=== PATIENT | female | born 1970 | race Caucasian/White ===

== ENCOUNTER 2018-09-26 01:51 | Emergency (ER) | payer MEDICAID, MEDICARE ==
[2018-09-26] MEDS ORDERED: Ondansetron PF 4 MG/2 ML Vial ONE (02:24)
[2018-09-26 02:47] LABS: ALT (SGPT) 28 U/L (8-55); AST (SGOT) 31 U/L (5-34); Albumin 3.9 g/dL (3.5-5.0); Alkaline Phosphatase 191 U/L (40-150); Anion Gap 19 mmol/L (10-20); BUN (Urea Nitrogen) 9 mg/dL (7.0-18.7); Bilirubin, Total 0.2 mg/dL (0.2-1.2); Calc. Creatinine Clearance 0 mL/min (70-130); Calcium 8.8 mg/dL (7.8-10.44); Carbon Dioxide 15 mmol/L (22-29); Chloride 113 mmol/L (98-107); Estimated GFR-MDRD 80; Globulin 3.2 g/dL (2.4-3.5); Glucose 113 mg/dL (70-105); Lipase 13 U/L (8-78); Potassium 4.3 mmol/L (3.5-5.1); Protein, Total 7.1 g/dL (6.0-8.3); Sodium 143 mmol/L (136-145)
[2018-09-26 02:59] LABS: BHCG - Serum Negative (NEGATIVE); Pregs Control Background? CLEAR/WHITE (CLR/WHITE); Pregs Control Bar Appear? YES (CONTROL BAR)
[2018-09-26 03:12] LABS: Acetaminophen Less than 6.0 mcg/mL (10.0-30.0); Alcohol 145 mg/dL (Less than 10); Salicylate Less than 8.0 mg/dL (15.0-30.0)
[2018-09-26 03:19] LABS: #Lymphocytes 1.2 thou/uL (1.20-3.40); #Monocytes 0.4 thou/uL (0.11-0.59); #Neutrophils 6.3 thou/uL (1.40-6.50); %Basophils 0.5 % (0.0-1.0); %Eosinophils 0.3 % (0.0-10.0); %Monocytes 4.7 % (0.0-10.0); %Neutrophils 79.4 % (42.0-75.0); Hemoglobin 14.5 g/dL (12.0-16.0); MDiff Complete? YES; Macrocytosis SLIGHT = 6-15 cells (100X) (0-5/hpf); Mean Corpuscular HGB CONC 35.3 g/dL (32.0-36.0); Mean Corpuscular Hemoglobin 37.8 pg (27.0-31.0); Platelet Count 245 thou/uL (130-400); RBC Distribution Width 11.7 % (11.5-14.5); Red Blood Cell (RBC) Count 3.84 mill/uL (4.20-5.40)
[2018-09-26] MEDS ORDERED: Lorazepam 2 MG/ML VIAL ONE (03:43)
[2018-09-26 05:41] LABS: Bilirubin Negative (Negative); Blood, Urine Large (Negative); Clarity CLEAR (Clear); Glucose, Urine (Dipstick) Negative (Negative); Leukocyte Negative (Negative); Nitrite Negative (Negative); Protein, Urine (Dipstick) Negative (Neg-Trace); Urobilinogen 0.2 mg/dL (0.2-1.0)
[2018-09-26 05:44] LABS: Bacteria/HPF None Seen HPF (None Seen); Hyaline Casts/LPF 0-3 HYALINE CAST LPF (0-3 Hyaline); Pathc Cast-AUWi Flag 0.27 (0-2.49); RBC/HPF GREATER THAN 50-TNTC HPF (0-3); Squamous Epithelial None Seen HPF (0-3); WBC/HPF 0-3 HPF (0-3)
[2018-09-26 05:46] LABS: Pregnancy Test - Urine (BHCG) Negative (Negative)
[2018-09-26 05:47] LABS: Pregu Control Background? CLEAR/WHITE (CLR/WHITE); Pregu Control Bar Appear? YES (CONTROL BAR); Specific Gravity 1.045 (1.002-1.036); Specific Gravity, Urine 1.045 (1.002-1.036)
--- NOTE | 2018-09-26 08:50 | CT ---
CT OF ABDOMEN AND PELVIS WITH CONTRAST FINAL REPORT: FINDINGS/IMPRESSION: Final report is in agreement with the above provided preliminary interpretation. Findings most consistent with recently passed left ureteral calculus, with mild residual urothelial h yperemia, thickening, and slight distention of the left urinary collection system. Nonobstructive, punctate right nephrolithiasis.
[2018-09-26] MEDS ORDERED: ISOVUE-370 76%-LOCM 1 ML ONE (11:20)
== END 2018-09-26 06:10 | disposition home or self-care (01) ==
LOC: ERS 01:51
DX: N21.0 Calculus in bladder (principal); N23 Unspecified renal colic
CPT/HCPCS: 36415; 36416; 74177; 80053; 80307; 81003; 81015; 81025; 83605; 83690; 84484; 84703; 85025; 86850; 86900; 86901; 87086; 93005; 96361; 96374; 96375; J2060; J2405; Q9966

== ENCOUNTER 2020-07-01 13:06 | Emergency (ER) | payer MEDICARE ==
[2020-07-01 14:26] LABS: Amphetamine Not Detected (NotDetected); Barbiturates Screen Not Detected (NotDetected); Benzodiazepine Screen Not Detected (NotDetected); Cocaine Metabolite Screen Not Detected (NotDetected); Medtox Control Line Valid? VALID (VALID); Medtox Reader # READER 4; Methadone Not Detected (NotDetected); Methamphetamine Not Detected (NotDetected); Opiate Screen Not Detected (NotDetected); Oxycodone Screen Not Detected (NotDetected); Phencyclidine (PCP) Not Detected (NotDetected); THC/Cannabinoid Screen Not Detected (NotDetected); Tricyclic Screen Not Detected (NotDetected)
[2020-07-01 14:34] LABS: #Eosinphils 0.1 thou/uL (0.0-0.7); #Lymphocytes 2.7 thou/uL (1.20-3.40); #Monocytes 0.4 thou/uL (0.11-0.59); #Neutrophils 3.4 thou/uL (1.40-6.50); %Basophils 0.7 % (0.0-1.0); %Eosinophils 1.2 % (0.0-10.0); %Lymphocytes 40.8 % (21.0-51.0); %Monocytes 5.8 % (0.0-10.0); %Neutrophils 51.4 % (42.0-75.0); Hemoglobin 13.9 g/dL (12.0-16.0); Mean Corpuscular HGB CONC 33.3 g/dL (32.0-36.0); Mean Corpuscular Hemoglobin 35.1 pg (27.0-31.0); Mean Platelet Volume 7.1 fL (7.4-10.4); Platelet Count 237 thou/uL (130-400); RBC Distribution Width 13.3 % (11.5-14.5); Red Blood Cell (RBC) Count 3.96 mill/uL (4.20-5.40); White Blood Cell (WBC) Count 6.6 thou/uL (4.8-10.8)
[2020-07-01 14:48] LABS: Acetaminophen Less than 6.0 mcg/mL (10.0-30.0); Alcohol 304 mg/dL (Less than 10); Salicylate Less than 8.0 mg/dL (15.0-30.0)
[2020-07-01 14:51] LABS: ALT (SGPT) 25 U/L (8-55); AST (SGOT) 27 U/L (5-34); Albumin 4.3 g/dL (3.5-5.0); Alkaline Phosphatase 180 U/L (40-110); Anion Gap 20 mmol/L (10-20); BUN (Urea Nitrogen) 11 mg/dL (7.0-18.7); Bilirubin, Total 0.3 mg/dL (0.2-1.2); CK (CPK) 124 U/L (29-168); Calc. Creatinine Clearance 0 mL/min (70-130); Calcium 8.5 mg/dL (7.8-10.44); Carbon Dioxide 22 mmol/L (22-29); Chloride 102 mmol/L (98-107); Globulin 3.4 g/dL (2.4-3.5); Glucose 93 mg/dL (70-105); Potassium 4.5 mmol/L (3.5-5.1); Protein, Total 7.7 g/dL (6.0-8.3); Sodium 139 mmol/L (136-145)
[2020-07-01 14:52] LABS: MDiff Complete? YES; Macrocytosis SLIGHT = 6-15 cells (100X) (0-5/hpf); Platelet Morphology Comment Appears Adequate
[2020-07-01] MEDS ORDERED: Nicotine 21 MG PATCH TOP SCH (17:00)
[2020-07-01] MEDS ORDERED: Acetaminophen 500 MG TAB ONE ×2 (19:49→19:51)
[2020-07-01] MEDS ORDERED: Ondansetron ODT 4 MG TAB ONE (20:52)
[2020-07-01] MEDS ORDERED: Lorazepam 2 MG/ML VIAL ONE (22:20)
[2020-07-01] MEDS ORDERED: Haloperidol Lactate 5 MG/ML VIAL IM SCH (22:30)
[2020-07-02] MEDS ORDERED: Acetaminophen 325 MG TAB ONE (08:23)
== END 2020-07-02 11:46 ==
LOC: ERS 13:06
DX: R45.851 Suicidal ideations (principal); F10.129 Alcohol abuse with intoxication, unspecified; Y90.0 Blood alcohol level of less than 20 mg/100 ml; F17.210 Nicotine dependence, cigarettes, uncomplicated; Z79.899 Other long term (current) drug therapy
CPT/HCPCS: 36415; 80053; 80306; 80307; 82550; 84443; 85025; 93005; 96372; J1630; J2060; Q0162

== ENCOUNTER 2022-01-21 22:05 | Emergency (ER) | payer MEDICARE | END 2022-01-21 23:41 | LOC: ERS 22:05 | DX: R55 Syncope and collapse (principal); F17.210 Nicotine dependence, cigarettes, uncomplicated | CPT/HCPCS: 93005 ==

== ENCOUNTER 2022-11-23 02:41 | Emergency (ER) | payer OTHER ==
[2022-11-23] MEDS ORDERED: Ondansetron PF 4 MG/2 ML Vial ONE (03:29)
[2022-11-23] MEDS ORDERED: Meclizine HCl 25 MG TAB ONE (03:29)
[2022-11-23] MEDS ORDERED: Acetaminophen 500 MG TAB ONE (03:29)
[2022-11-23 03:32] LABS: #Eosinphils 0.1 thou/uL (0.0-0.7); #Monocytes 0.4 thou/uL (0.11-0.59); #Neutrophils 1.4 thou/uL (1.40-6.50); %Basophils 1.1 % (0.0-1.0); %Eosinophils 1.6 % (0.0-10.0); %Lymphocytes 50.1 % (21.0-51.0); %Neutrophils 36.9 % (42.0-75.0); Hemoglobin 10.6 g/dL (12.0-16.0); Mean Corpuscular Hemoglobin 32.7 pg (27.0-31.0); Mean Corpuscular Volume 99.1 fl (78.0-98.0); Mean Platelet Volume 9.2 fL (7.4-10.4); Platelet Count 247 10x3/uL (130-400); RBC Distribution Width 16.9 % (11.5-14.5); Red Blood Cell (RBC) Count 3.24 mill/uL (4.20-5.40); White Blood Cell (WBC) Count 3.8 10x3/uL (4.8-10.8)
[2022-11-23 04:00] LABS: Acetaminophen Less than 10 mcg/mL (10.0-30.0); Alcohol 301.6 mg/dL (Less than 10); Lipase 37 U/L (8-78); Salicylate Less than 8.0 mg/dL (15.0-30.0)
[2022-11-23 04:01] LABS: ALT (SGPT) 15 U/L (8-55); AST (SGOT) 17 U/L (5-34); Albumin 3.6 g/dL (3.5-5.0); Alkaline Phosphatase 295 U/L (40-110); Anion Gap 17 mmol/L (10-20); BUN (Urea Nitrogen) 8 mg/dL (9.8-20.1); Bilirubin, Total 0.2 mg/dL (0.2-1.2); CK (CPK) 39 U/L (29-168); Calc. Creatinine Clearance 0 mL/min (70-130); Calcium 8.6 mg/dL (7.8-10.44); Carbon Dioxide 18 mmol/L (22-29); Chloride 109 mmol/L (98-107); Estimated GFR 108; Globulin 3.2 g/dL (2.4-3.5); Glucose 81 mg/dL (70-105); Potassium 3.9 mmol/L (3.5-5.1); Protein, Total 6.8 g/dL (6.0-8.3); Sodium 140 mmol/L (136-145)
== END 2022-11-23 06:52 | disposition home or self-care (01) ==
LOC: ERS 02:41
DX: F10.129 Alcohol abuse with intoxication, unspecified (principal); R07.9 Chest pain, unspecified; D72.819 Decreased white blood cell count, unspecified; I10 Essential (primary) hypertension; J44.9 Chronic obstructive pulmonary disease, unspecified; F17.210 Nicotine dependence, cigarettes, uncomplicated; Y90.8 Blood alcohol level of 240 mg/100 ml or more
CPT/HCPCS: 36415; 80053; 80307; 82140; 82550; 83690; 84484; 85025; 93005; 96365; 96375; J2405; J3411

== ENCOUNTER 2023-03-31 18:12 | Emergency (ER) | payer OTHER ==
[2023-03-31 21:56] LABS: Bacteria/HPF None Seen HPF (None Seen); Bilirubin Negative (Negative); Blood, Urine Negative (Negative); CAUTI Indications for Culture Alt mental st,lethar; Clarity Clear (Clear); Glucose, Urine (Dipstick) Normal (Negative); Ketone, Urine Negative (Negative); Leukocyte Negative Leu/uL (Negative); Nitrite Negative (Negative); Protein, Urine (Dipstick) Negative (Neg-Trace); RBC/HPF 0-3 HPF (0-3); Specific Gravity, Urine 1.012 (1.002-1.036); Squamous Epithelial 0-3 HPF (0-3); Urobilinogen Normal mg/dL (Less than 2); WBC/HPF 0-3 HPF (0-3)
[2023-03-31 22:00] LABS: Urine Culture Reflex No No
[2023-03-31 22:02] LABS: Amphetamine Not Detected (NotDetected); Barbiturates Screen Not Detected (NotDetected); Benzodiazepine Screen Not Detected (NotDetected); Cocaine Metabolite Screen Not Detected (NotDetected); Methadone Not Detected (NotDetected); Methamphetamine Not Detected (NotDetected); Opiate Screen Not Detected (NotDetected); Oxycodone Screen Not Detected (NotDetected); Phencyclidine (PCP) Not Detected (NotDetected); THC/Cannabinoid Screen Detected (NotDetected); Tricyclic Screen Not Detected (NotDetected)
[2023-03-31 22:46] LABS: Acetaminophen Less than 10 mcg/mL (10.0-30.0); Alcohol 271.7 mg/dL (Less than 10); Salicylate Less than 8.0 mg/dL (15.0-30.0)
[2023-04-01] MEDS ORDERED: Ondansetron PF 4 MG/2 ML Vial ONE ×3 (00:03→08:49)
[2023-04-01] MEDS ORDERED: diphenhydrAMINE 50 MG/ML VIAL ONE (00:03)
[2023-04-01] MEDS ORDERED: LORazepam 2 MG/ML SYR.(CARPUJECT) ONE ×2 (03:28→08:49)
== END 2023-04-01 19:58 | disposition home or self-care (01) ==
LOC: ERS 18:12 → EEVIPCON 18:12 → ERS 04-01 19:58
DX: F10.129 Alcohol abuse with intoxication, unspecified (principal); F43.20 Adjustment disorder, unspecified; F17.210 Nicotine dependence, cigarettes, uncomplicated; Y90.0 Blood alcohol level of less than 20 mg/100 ml
CPT/HCPCS: 80306; 80307 ×2; 81001; 84443; 96361; 96374; 96375; 96376; 99285; J2060; 36415; J1200; J2405

== ENCOUNTER 2023-04-03 12:28 | Emergency (ER) | payer MEDICARE, OTHER ==
[2023-04-03 12:50] LABS: Hematocrit 38.6 % (36.0-47.0); Manual Diff?? YES; Mean Corpuscular HGB CONC 33.7 g/dL (32.0-36.0); Mean Corpuscular Hemoglobin 34.4 pg (27.0-31.0); Mean Corpuscular Volume 102.1 fl (78.0-98.0); Mean Platelet Volume 9.6 fL (7.4-10.4); Platelet Count 154 10x3/uL (130-400); RBC Distribution Width 15.4 % (11.5-14.5); Red Blood Cell (RBC) Count 3.78 mill/uL (4.20-5.40); White Blood Cell (WBC) Count 4.8 10x3/uL (4.8-10.8)
[2023-04-03 12:53] LABS: Delete Auto Diff?? YES
[2023-04-03 13:15] LABS: ALT (SGPT) 52 U/L (8-55); AST (SGOT) 102 U/L (5-34); Albumin 3.8 g/dL (3.5-5.0); Alkaline Phosphatase 211 U/L (40-110); Anion Gap 18 mmol/L (10-20); BUN (Urea Nitrogen) 8 mg/dL (9.8-20.1); Bilirubin, Total 0.2 mg/dL (0.2-1.2); Calc. Creatinine Clearance 0 mL/min (70-130); Calcium 8.5 mg/dL (7.8-10.44); Carbon Dioxide 23 mmol/L (22-29); Chloride 105 mmol/L (98-107); Estimated GFR 104; Globulin 2.7 g/dL (2.4-3.5); Glucose 92 mg/dL (70-105); Potassium 4.2 mmol/L (3.5-5.1); Protein, Total 6.5 g/dL (6.0-8.3); Sodium 142 mmol/L (136-145)
[2023-04-03 13:16] LABS: Acetaminophen Less than 10 mcg/mL (10.0-30.0); Alcohol 389.3 mg/dL (Less than 10); Salicylate Less than 8.0 mg/dL (15.0-30.0)
[2023-04-03 13:19] LABS: Anisocytosis SLIGHT = 6-15 cells HPF (0-5); Band 5 % (5-11); CellaVision Operator ID LAB.MJL; Lymphocytes 62 % (21-51); Macrocytosis SLIGHT = 6-15 cells HPF (0-5); Monocytes 6 % (0-10); Neutrophil 21 % (42-75); Ovalocytes SLIGHT = 2-5 cells HPF (0-1); Platelet Adequacy Comment Platelets Normal; Polychromasia SLIGHT = 2-3 cells HPF (0-2); Reactive Lymphocytes 3 % (0-10); Total Cell Count 100
[2023-04-03 14:22] LABS: Bacteria/HPF None Seen HPF (None Seen); Bilirubin Negative (Negative); Blood, Urine Negative (Negative); CAUTI Indications for Culture Alt mental st,lethar; Clarity Clear (Clear); Glucose, Urine (Dipstick) Normal (Negative); Ketone, Urine Negative (Negative); Leukocyte Negative Leu/uL (Negative); Nitrite Negative (Negative); Protein, Urine (Dipstick) Negative (Neg-Trace); RBC/HPF 0-3 HPF (0-3); Specific Gravity, Urine 1.013 (1.002-1.036); Squamous Epithelial 0-3 HPF (0-3); Urobilinogen Normal mg/dL (Less than 2); WBC/HPF 0-3 HPF (0-3)
[2023-04-03 14:23] LABS: Urine Culture Reflex No No
[2023-04-03 14:27] LABS: Amphetamine Not Detected (NotDetected); Barbiturates Screen Not Detected (NotDetected); Benzodiazepine Screen Not Detected (NotDetected); Cocaine Metabolite Screen Not Detected (NotDetected); Methadone Not Detected (NotDetected); Methamphetamine Not Detected (NotDetected); Opiate Screen Not Detected (NotDetected); Oxycodone Screen Not Detected (NotDetected); Phencyclidine (PCP) Not Detected (NotDetected); THC/Cannabinoid Screen Detected (NotDetected); Tricyclic Screen Not Detected (NotDetected)
[2023-04-03] MEDS ORDERED: Ondansetron ODT 4 MG TAB ONE ×2 (14:56→23:00)
[2023-04-03] MEDS ORDERED: Lorazepam 1 MG TAB ONE (23:00)
[2023-04-03] MEDS ORDERED: chlordiazePOXIDE HCl 25 MG CAP ONE (23:05)
== END 2023-04-04 09:55 | disposition home or self-care (01) ==
LOC: ERS 12:28
DX: F10.239 Alcohol dependence with withdrawal, unspecified (principal); F17.210 Nicotine dependence, cigarettes, uncomplicated; Y90.8 Blood alcohol level of 240 mg/100 ml or more
CPT/HCPCS: 36415; 80053; 80306; 80307; 81001; 84443; 85025; 99284; Q0162

== ENCOUNTER 2023-04-14 11:47 | Emergency (ER) | payer OTHER | END 2023-04-14 13:55 | disposition home or self-care (01) | LOC: ERS 11:47 | DX: F10.129 Alcohol abuse with intoxication, unspecified (principal); I50.9 Heart failure, unspecified; J44.9 Chronic obstructive pulmonary disease, unspecified; D64.9 Anemia, unspecified; F17.210 Nicotine dependence, cigarettes, uncomplicated; Z79.899 Other long term (current) drug therapy | CPT/HCPCS: 99284 ==

== ENCOUNTER 2023-04-18 20:49 | Emergency (ER) | payer OTHER ==
[2023-04-18 21:45] LABS: Hematocrit 42.9 % (36.0-47.0); Hemoglobin 14.3 g/dL (12.0-16.0); Manual Diff?? YES; Mean Corpuscular HGB CONC 33.3 g/dL (32.0-36.0); Mean Corpuscular Hemoglobin 34.4 pg (27.0-31.0); Mean Corpuscular Volume 103.1 fl (78.0-98.0); Mean Platelet Volume 9.6 fL (7.4-10.4); RBC Distribution Width 16.7 % (11.5-14.5); Red Blood Cell (RBC) Count 4.16 mill/uL (4.20-5.40); White Blood Cell (WBC) Count 3.9 10x3/uL (4.8-10.8)
[2023-04-18 21:46] LABS: Delete Auto Diff?? YES; Platelet Count 78 10x3/uL (130-400)
[2023-04-18] MEDS ORDERED: LORazepam 2 MG/ML SYR.(CARPUJECT) ONE (21:51)
[2023-04-18 22:09] LABS: ALT (SGPT) 88 U/L (8-55); AST (SGOT) 197 U/L (5-34); Albumin 3.8 g/dL (3.5-5.0); Alkaline Phosphatase 319 U/L (40-110); Anion Gap 22 mmol/L (10-20); BUN (Urea Nitrogen) 6 mg/dL (9.8-20.1); Bilirubin, Total 0.4 mg/dL (0.2-1.2); CK (CPK) 62 U/L (29-168); Calc. Creatinine Clearance 0 mL/min (70-130); Calcium 8.1 mg/dL (7.8-10.44); Carbon Dioxide 18 mmol/L (22-29); Chloride 107 mmol/L (98-107); Estimated GFR 107; Globulin 3.2 g/dL (2.4-3.5); Glucose 79 mg/dL (70-105); Potassium 5.3 mmol/L (3.5-5.1); Sodium 142 mmol/L (136-145)
[2023-04-18 22:12] LABS: Acetaminophen Less than 10 mcg/mL (10.0-30.0); Alcohol 446.6 mg/dL (Less than 10); Lipase 21 U/L (8-78); Salicylate Less than 8.0 mg/dL (15.0-30.0)
[2023-04-18 22:13] LABS: Troponin I Less than 0.010 ng/mL (< 0.028)
[2023-04-18 22:32] LABS: Band 4 % (5-11); CellaVision Operator ID LAB.CLH1; Eosinophils 2 % (0-10); Large Platelets 5.2 % (0-5); Lymphocytes 61 % (21-51); Macrocytosis SLIGHT = 6-15 cells HPF (0-5); Monocytes 5 % (0-10); Neutrophil 25 % (42-75); Platelet Adequacy Comment Platelets Decreased; Total Cell Count 115
[2023-04-19] MEDS ORDERED: Ondansetron PF 4 MG/2 ML Vial ONE (02:48)
[2023-04-19] MEDS ORDERED: Promethazine HCl 25 MG in Sodium Chloride 0.9% 50 ML IVPB SCH (06:00)
== END 2023-04-19 07:18 ==
LOC: ERS 20:49
DX: G89.29 Other chronic pain (principal); M54.50 Low back pain, unspecified; F10.129 Alcohol abuse with intoxication, unspecified; I50.9 Heart failure, unspecified; J44.9 Chronic obstructive pulmonary disease, unspecified; Z87.891 Personal history of nicotine dependence
CPT/HCPCS: 36415; 70450; 72131; 80053; 80307; 82550; 83690; 84484; 85025; 93005; J2060; J2405; J2550; J3411

== ENCOUNTER 2023-04-19 12:21 | Emergency (ER) | payer OTHER ==
[2023-04-19] MEDS ORDERED: Acetaminophen 500 MG TAB ONE (13:54)
[2023-04-19 16:46] LABS: Bilirubin Negative (Negative); Blood, Urine Negative (Negative); Clarity Clear (Clear); Glucose, Urine (Dipstick) Normal (Negative); Ketone, Urine Negative (Negative); Leukocyte Negative Leu/uL (Negative); Nitrite Negative (Negative); Protein, Urine (Dipstick) Negative (Neg-Trace); Specific Gravity, Urine 1.007 (1.002-1.036); Urobilinogen Normal mg/dL (Less than 2)
[2023-04-19 16:54] LABS: Amphetamine Not Detected (NotDetected); Barbiturates Screen Not Detected (NotDetected); Benzodiazepine Screen Detected (NotDetected); Cocaine Metabolite Screen Not Detected (NotDetected); Methadone Not Detected (NotDetected); Methamphetamine Not Detected (NotDetected); Opiate Screen Not Detected (NotDetected); Oxycodone Screen Not Detected (NotDetected); Phencyclidine (PCP) Not Detected (NotDetected); THC/Cannabinoid Screen Detected (NotDetected); Tricyclic Screen Not Detected (NotDetected)
[2023-04-19 16:58] LABS: CAUTI Indications for Culture Alt mental st,lethar; RBC/HPF None Seen HPF (0-3); Squamous Epithelial None Seen HPF (0-3); WBC/HPF None Seen HPF (0-3)
[2023-04-19 16:59] LABS: Urine Culture Reflex No No
[2023-04-19] MEDS ORDERED: Lorazepam 1 MG TAB ONE (16:59)
[2023-04-19 17:57] LABS: #Monocytes 0.2 thou/uL (0.11-0.59); #Neutrophils 1.6 thou/uL (1.40-6.50); %Basophils 1.2 % (0.0-1.0); %Eosinophils 0.6 % (0.0-10.0); %Lymphocytes 42.3 % (21.0-51.0); %Monocytes 7.3 % (0.0-10.0); %Neutrophils 48.3 % (42.0-75.0); Hematocrit 38.8 % (36.0-47.0); Hemoglobin 12.9 g/dL (12.0-16.0); Mean Corpuscular HGB CONC 33.2 g/dL (32.0-36.0); Mean Corpuscular Hemoglobin 34.7 pg (27.0-31.0); Mean Corpuscular Volume 104.3 fl (78.0-98.0); RBC Distribution Width 16.2 % (11.5-14.5); Red Blood Cell (RBC) Count 3.72 mill/uL (4.20-5.40); White Blood Cell (WBC) Count 3.3 10x3/uL (4.8-10.8)
[2023-04-19 18:09] LABS: Platelet Count 70 10x3/uL (130-400)
[2023-04-19 18:20] LABS: Acetaminophen Less than 10 mcg/mL (10.0-30.0); Alcohol 329.9 mg/dL (Less than 10); Salicylate Less than 8.0 mg/dL (15.0-30.0)
[2023-04-19] MEDS ORDERED: Nicotine 14 MG PATCH ONE (18:30)
[2023-04-19 18:41] LABS: ALT (SGPT) 73 U/L (8-55); AST (SGOT) 145 U/L (5-34); Albumin 3.5 g/dL (3.5-5.0); Alcohol 326.4 mg/dL (Less than 10); Alkaline Phosphatase 316 U/L (40-110); Anion Gap 22 mmol/L (10-20); BUN (Urea Nitrogen) 8 mg/dL (9.8-20.1); Bilirubin, Total 0.5 mg/dL (0.2-1.2); Calc. Creatinine Clearance 0 mL/min (70-130); Carbon Dioxide 15 mmol/L (22-29); Chloride 108 mmol/L (98-107); Estimated GFR 107; Globulin 3.4 g/dL (2.4-3.5); Glucose 90 mg/dL (70-105); Potassium 4.8 mmol/L (3.5-5.1); Protein, Total 6.9 g/dL (6.0-8.3); Sodium 140 mmol/L (136-145)
[2023-04-19] MEDS ORDERED: Ondansetron ODT 8 MG TAB ONE (19:08)
[2023-04-19] MEDS ORDERED: Ibuprofen 200 MG TAB ONE (22:20)
[2023-04-20] MEDS ORDERED: Ondansetron ODT 8 MG TAB ONE (04:31)
[2023-04-20 05:01] LABS: Alcohol Less than 10.0 mg/dL (Less than 10); Anion Gap 13 mmol/L (10-20); BUN (Urea Nitrogen) 9 mg/dL (9.8-20.1); Calc. Creatinine Clearance 0 mL/min (70-130); Calcium 8.4 mg/dL (7.8-10.44); Carbon Dioxide 25 mmol/L (22-29); Chloride 102 mmol/L (98-107); Estimated GFR 105; Glucose 81 mg/dL (70-105); Potassium 4.3 mmol/L (3.5-5.1); Sodium 136 mmol/L (136-145)
== END 2023-04-20 09:27 | disposition home or self-care (01) ==
LOC: ERS 12:28
DX: F10.129 Alcohol abuse with intoxication, unspecified (principal); F32.A Depression, unspecified; M54.9 Dorsalgia, unspecified; G89.29 Other chronic pain; F17.210 Nicotine dependence, cigarettes, uncomplicated; I50.9 Heart failure, unspecified; J44.9 Chronic obstructive pulmonary disease, unspecified
CPT/HCPCS: 70450; 72131 ×2; 72148; 80048; 80053 ×2; 80306; 80307 ×3; 81001; 82550; 83690; 84484; 85025 ×2; 86140; 93005; 99284; J2060; 36415; J2405; J2550; J3411; Q0162

== ENCOUNTER 2023-04-26 13:02 | Inpatient (IN) | payer OTHER ==
[2023-04-26 14:02] LABS: #Monocytes 0.4 thou/uL (0.11-0.59); #Neutrophils 1.4 thou/uL (1.40-6.50); %Basophils 1.4 % (0.0-1.0); %Eosinophils 0.7 % (0.0-10.0); %Lymphocytes 36.7 % (21.0-51.0); %Monocytes 12.9 % (0.0-10.0); Hematocrit 38.6 % (36.0-47.0); Mean Corpuscular HGB CONC 33.7 g/dL (32.0-36.0); Mean Corpuscular Hemoglobin 34.8 pg (27.0-31.0); Mean Corpuscular Volume 103.2 fl (78.0-98.0); Mean Platelet Volume 10.5 fL (7.4-10.4); Red Blood Cell (RBC) Count 3.74 mill/uL (4.20-5.40); White Blood Cell (WBC) Count 2.9 10x3/uL (4.8-10.8)
[2023-04-26 14:03] LABS: Platelet Count 60 10x3/uL (130-400)
[2023-04-26 14:13] LABS: Bacteria/HPF None Seen HPF (None Seen); Bilirubin Negative (Negative); Blood, Urine Negative (Negative); CAUTI Indications for Culture Alt mental st,lethar; Clarity Clear (Clear); Glucose, Urine (Dipstick) Normal (Negative); Ketone, Urine Negative (Negative); Leukocyte Negative Leu/uL (Negative); Nitrite Negative (Negative); Protein, Urine (Dipstick) Negative (Neg-Trace); RBC/HPF 0-3 HPF (0-3); Specific Gravity, Urine 1.005 (1.002-1.036); Squamous Epithelial 0-3 HPF (0-3); Urobilinogen Normal mg/dL (Less than 2); WBC/HPF 0-3 HPF (0-3)
[2023-04-26 14:19] LABS: Urine Culture Reflex No No
[2023-04-26 14:26] LABS: ALT (SGPT) 70 U/L (8-55); AST (SGOT) 179 U/L (5-34); Albumin 3.4 g/dL (3.5-5.0); Alkaline Phosphatase 331 U/L (40-110); Anion Gap 19 mmol/L (10-20); BUN (Urea Nitrogen) 7 mg/dL (9.8-20.1); Bilirubin, Total 0.5 mg/dL (0.2-1.2); Calc. Creatinine Clearance 0 mL/min (70-130); Calcium 8.1 mg/dL (7.8-10.44); Carbon Dioxide 23 mmol/L (22-29); Chloride 104 mmol/L (98-107); Estimated GFR 107; Globulin 3.1 g/dL (2.4-3.5); Glucose 87 mg/dL (70-105); Potassium 4.3 mmol/L (3.5-5.1); Protein, Total 6.5 g/dL (6.0-8.3); Sodium 142 mmol/L (136-145); Troponin I Less than 0.010 ng/mL (< 0.028)
[2023-04-26] MEDS ORDERED: Bacitracin 1 PK ONE (18:56)
[2023-04-26] MEDS ORDERED: Ondansetron ODT 4 MG TAB ONE (20:22)
[2023-04-26] MEDS ORDERED: Metoclopramide HCl 10 MG/2 ML VIAL ONE (22:44)
[2023-04-26] MEDS ORDERED: Diazepam 10 MG/2 ML SYRINGE ONE (22:44)
[2023-04-26] MEDS ORDERED: Acetaminophen 325 MG TAB PO PRN (23:15)
[2023-04-26] MEDS ORDERED: Ondansetron PF 4 MG/2 ML Vial IVP PRN (23:15)
[2023-04-26] MEDS ORDERED: Ondansetron ODT 4 MG TAB SL PRN (23:15)
[2023-04-26] MEDS ORDERED: Electrolyte Replacement Protocol 1 EACH FS PRN (23:45)
[2023-04-26] MEDS ORDERED: Senokot S 8.6-50 MG TAB PO PRN (23:55)
[2023-04-26] MEDS ORDERED: Calcium Carbonate 500 MG ChewTAB PO PRN (23:55)
[2023-04-26] MEDS ORDERED: Lorazepam 1 MG TAB PO PRN (23:56)
[2023-04-26] MEDS ORDERED: Lorazepam 2 MG/ML VIAL IM PRN (23:56)
[2023-04-27 00:22] VITALS: BMI 26.9
[2023-04-27] MEDS: Thiamine HCl 200 MG/2 ML VIAL SLOW IVP SCH (01:07)
[2023-04-27] MEDS: Lorazepam 1 MG TAB PO SCH ×4 (01:07→12:14)
[2023-04-27 01:09] LABS: Magnesium 1.7 mg/dL (1.6-2.6)
[2023-04-27 06:14] LABS: #Monocytes 0.4 thou/uL (0.11-0.59); #Neutrophils 1.3 thou/uL (1.40-6.50); %Basophils 0.8 % (0.0-1.0); %Eosinophils 0.4 % (0.0-10.0); %Lymphocytes 30.2 % (21.0-51.0); %Monocytes 16.5 % (0.0-10.0); %Neutrophils 52.1 % (42.0-75.0); Hematocrit 32.4 % (36.0-47.0); Hemoglobin 11.1 g/dL (12.0-16.0); Mean Corpuscular HGB CONC 34.3 g/dL (32.0-36.0); Mean Corpuscular Hemoglobin 34.2 pg (27.0-31.0); Mean Platelet Volume 10.6 fL (7.4-10.4); RBC Distribution Width 15.5 % (11.5-14.5); Red Blood Cell (RBC) Count 3.25 mill/uL (4.20-5.40); White Blood Cell (WBC) Count 2.5 10x3/uL (4.8-10.8)
[2023-04-27 06:37] LABS: Mean Corpuscular Volume 99.7 fl (78.0-98.0); Platelet Count 47 10x3/uL (130-400)
[2023-04-27 07:22] LABS: Albumin 3.2 g/dL (3.5-5.0)
[2023-04-27 07:23] LABS: Chloride 101 mmol/L (98-107); Potassium 3.9 mmol/L (3.5-5.1); Sodium 136 mmol/L (136-145)
[2023-04-27 07:25] LABS: Glucose 83 mg/dL (70-105); Protein, Total 6.2 g/dL (6.0-8.3)
[2023-04-27 07:26] LABS: Anion Gap 16 mmol/L (10-20); Carbon Dioxide 23 mmol/L (22-29)
[2023-04-27 07:27] LABS: Alkaline Phosphatase 315 U/L (40-110)
[2023-04-27 07:28] LABS: Calc. Creatinine Clearance 118 mL/min (70-130); Estimated GFR 105
[2023-04-27 07:29] LABS: BUN (Urea Nitrogen) 8 mg/dL (9.8-20.1)
[2023-04-27 07:30] LABS: ALT (SGPT) 60 U/L (8-55); AST (SGOT) 126 U/L (5-34)
[2023-04-27] MEDS ORDERED: Magnesium 2 GM/50 ML(in water) 2 GM in Premix 1 BAG IVPB SCH (08:00)
[2023-04-27 09:08] LABS: Bilirubin, Total 1.5 mg/dL (0.2-1.2)
[2023-04-27] MEDS: Doxycycline 100 MG CAP PO SCH ×2 (09:24→20:20)
[2023-04-27] MEDS: Multivit, Therapeutic 1 TAB PO SCH (09:24)
[2023-04-27] MEDS: Famotidine 20 MG TAB PO SCH ×2 (09:24→20:20)
[2023-04-27] MEDS: Folic Acid 1 MG TAB PO SCH (09:24)
[2023-04-27] MEDS ORDERED: Gabapentin 300 MG CAP PO SCH (21:15)
[2023-04-27] MEDS ORDERED: tiZANidine HCl 4 MG TAB PO SCH (21:30)
[2023-04-27] MEDS ORDERED: Lorazepam 1 MG TAB PO PRN (23:56)
[2023-04-28] MEDS: Thiamine HCl 200 MG/2 ML VIAL SLOW IVP SCH ×2 (02:14→23:42)
[2023-04-28 04:33] LABS: #Eosinphils 0.1 thou/uL (0.0-0.7); #Monocytes 0.3 thou/uL (0.11-0.59); #Neutrophils 1.2 thou/uL (1.40-6.50); %Basophils 0.5 % (0.0-1.0); %Eosinophils 2.7 % (0.0-10.0); %Lymphocytes 30.2 % (21.0-51.0); %Monocytes 12.6 % (0.0-10.0); %Neutrophils 53.5 % (42.0-75.0); Hematocrit 30.9 % (36.0-47.0); Hemoglobin 10.4 g/dL (12.0-16.0); Mean Corpuscular HGB CONC 33.7 g/dL (32.0-36.0); Mean Corpuscular Hemoglobin 34.7 pg (27.0-31.0); Mean Platelet Volume 10.8 fL (7.4-10.4); RBC Distribution Width 15.5 % (11.5-14.5); White Blood Cell (WBC) Count 2.2 10x3/uL (4.8-10.8)
[2023-04-28 04:58] LABS: Anion Gap 13 mmol/L (10-20); BUN (Urea Nitrogen) 6 mg/dL (9.8-20.1); Calc. Creatinine Clearance 125 mL/min (70-130); Calcium 8.2 mg/dL (7.8-10.44); Carbon Dioxide 23 mmol/L (22-29); Chloride 107 mmol/L (98-107); Estimated GFR 106; Glucose 98 mg/dL (70-105); Potassium 3.5 mmol/L (3.5-5.1); Sodium 139 mmol/L (136-145)
[2023-04-28 05:40] LABS: Platelet Count 44 10x3/uL (130-400)
[2023-04-28] MEDS ORDERED: Potassium Chloride 20 MEQ TAB PO SCH (08:00)
[2023-04-28] MEDS: Famotidine 20 MG TAB PO SCH ×2 (08:29→20:10)
[2023-04-28] MEDS: Doxycycline 100 MG CAP PO SCH ×2 (08:29→20:10)
[2023-04-28] MEDS: Folic Acid 1 MG TAB PO SCH (08:30)
[2023-04-28] MEDS: Multivit, Therapeutic 1 TAB PO SCH (08:30)
[2023-04-28] MEDS: Gabapentin 300 MG CAP PO SCH ×2 (08:30→20:09)
[2023-04-28 11:46] LABS: Mean Corpuscular Volume 105.4 fl (78.0-98.0)
[2023-04-28] MEDS ORDERED: tiZANidine HCl 4 MG TAB PO SCH (21:00)
[2023-04-28] MEDS ORDERED: Lorazepam 0.5 MG TAB PO SCH (23:45)
[2023-04-28] MEDS ORDERED: Lorazepam 1 MG TAB PO PRN (23:56)
[2023-04-29 05:04] LABS: #Eosinphils 0.1 thou/uL (0.0-0.7); #Monocytes 0.3 thou/uL (0.11-0.59); #Neutrophils 2.5 thou/uL (1.40-6.50); %Basophils 0.8 % (0.0-1.0); %Eosinophils 1.7 % (0.0-10.0); %Lymphocytes 20.3 % (21.0-51.0); %Monocytes 7.8 % (0.0-10.0); %Neutrophils 69.1 % (42.0-75.0); Hematocrit 34.2 % (36.0-47.0); Hemoglobin 11.1 g/dL (12.0-16.0); Mean Corpuscular HGB CONC 32.5 g/dL (32.0-36.0); Mean Corpuscular Hemoglobin 35.1 pg (27.0-31.0); Mean Corpuscular Volume 108.2 fl (78.0-98.0); RBC Distribution Width 15.5 % (11.5-14.5); Red Blood Cell (RBC) Count 3.16 mill/uL (4.20-5.40); White Blood Cell (WBC) Count 3.6 10x3/uL (4.8-10.8)
[2023-04-29 05:07] LABS: Platelet Count 51 10x3/uL (130-400)
[2023-04-29 05:23] LABS: Anion Gap 15 mmol/L (10-20); BUN (Urea Nitrogen) 11 mg/dL (9.8-20.1); Calc. Creatinine Clearance 134 mL/min (70-130); Calcium 8.2 mg/dL (7.8-10.44); Carbon Dioxide 19 mmol/L (22-29); Chloride 107 mmol/L (98-107); Estimated GFR 108; Glucose 74 mg/dL (70-105); Potassium 3.3 mmol/L (3.5-5.1); Sodium 138 mmol/L (136-145)
[2023-04-29 05:41] LABS: CellaVision Operator ID lab.abc; Macrocytosis SLIGHT = 6-15 cells HPF (0-5); Platelet Adequacy Comment Platelets Decreased
[2023-04-29] MEDS ORDERED: Potassium Chloride 20 MEQ TAB PO SCH ×3 (08:00→09:00)
[2023-04-29] MEDS: Famotidine 20 MG TAB PO SCH (08:54)
[2023-04-29] MEDS: Folic Acid 1 MG TAB PO SCH (08:54)
[2023-04-29] MEDS: Gabapentin 300 MG CAP PO SCH (08:54)
[2023-04-29] MEDS: Multivit, Therapeutic 1 TAB PO SCH (08:54)
[2023-04-29] MEDS: Doxycycline 100 MG CAP PO SCH (08:55)
[2023-04-29] MEDS: Acetaminophen 500 MG TAB PO PRN ×2 (10:31→18:43)
[2023-04-29 15:09] VITALS: BP 136/98; TEMP 98.3
[2023-04-29] MEDS ORDERED: Thiamine 100 MG TAB PO SCH (23:45)
[2023-04-29] MEDS ORDERED: Lorazepam 0.5 MG TAB PO PRN (23:56)
== END 2023-04-29 19:30 | DRG 896 ==
LOC: ERS 13:02 → 2NO 22:58
PROVIDERS: ADMIT Student in an Organized Health Care Education/Training Program; ATTEND Hospitalist
DX: F10.129 Alcohol abuse with intoxication, unspecified (principal); G93.41 Metabolic encephalopathy; R45.851 Suicidal ideations; D61.818 Other pancytopenia; L03.311 Cellulitis of abdominal wall; R73.03 Prediabetes; J44.9 Chronic obstructive pulmonary disease, unspecified; F17.210 Nicotine dependence, cigarettes, uncomplicated; F31.9 Bipolar disorder, unspecified; E87.6 Hypokalemia; Z98.890 Other specified postprocedural states; Z90.710 Acquired absence of both cervix and uterus; Z79.899 Other long term (current) drug therapy
CPT/HCPCS: 36415; 70450; 72125; 80048; 80053; 80307; 81001; 83735; 84100; 84484; 85025; 93005; 96365; 96375; J2765; J3360; J3411; J3475; Q0162

== ENCOUNTER 2023-05-17 02:51 | Emergency (ER) | payer OTHER | END 2023-05-17 05:30 | disposition home or self-care (01) | LOC: ERS 02:51 | DX: M25.531 Pain in right wrist (principal); J44.9 Chronic obstructive pulmonary disease, unspecified; F17.210 Nicotine dependence, cigarettes, uncomplicated; W01.0XXA Fall on same level from slipping, tripping and stumbling without subsequent striking against object, initial encounter ==